=== PATIENT | female | born 1960 | race Caucasian/White ===

== ENCOUNTER 2018-07-26 14:00 | Emergency (ER) | payer SELFPAY ==
[~2018-07-26] VITALS: Ht 152.4 cm; Wt 52.3 kg
[2018-07-26] MEDS ORDERED: EPIPEN 2-P0.3 MG/0.3 IM (15:10)
[2018-07-26] MEDS ORDERED: DELTASONE20 MG PO (15:10)
[2018-07-26 15:50] VITALS: BP 128/60
== END 2018-07-26 15:30 | disposition home or self-care (01) | DRG 607 ==
LOC: ED 14:00
DX: L23.9 Allergic contact dermatitis, unspecified cause (principal)